=== PATIENT | female | born 1995 | race American Indian/Alaskan Native ===

== ENCOUNTER 2021-02-27 11:47 | Emergency (ER) | payer OTHER ==
[2021-02-27 12:02] VITALS: BP 135/91
--- NOTE | 2021-02-27 12:56 | Emergency Department Report ---
ED General Adult HPI - General Chief complaint: Allergic Reaction Stated complaint: ALLERGIC REACTION Time Seen by Provider: 02/27/21 12:23 Source: patient Mode of arrival: Ambulatory Limitations: No Limitations - History of Present Illness Initial comments: 25 yr old female presents to ED with complaints of swelling/rash to lips/face and vaginal itching. Patient states that she feels like her lips are tight and swollen despite the fact it does not look swollen and she also reports small bumps to her right chin and around lips which have been itchy. She states those symptoms started last saturday. She states she started using some new facial products about 2-3 weeks ago but that's the only new things that she has started. She denies any other new contacts including food or meds. She denies any tongue or throat swelling cough, wheezing or difficulty breathing Patient also complains of vaginal itching and swelling which she noticed a couple days ago. She denies any vaginal discharge she denies any vaginal pain. Her last MC was either december or january she is not exactly sure. She reports new sexual partner but protected sexual intercourse. MD Complaint: lip swelling/face rash, vaginal itching -: days(s) - Related Data Previous Rx's Medication Instructions Recorded Last Taken Type metroNIDAZOLE [Flagyl] 500 mg PO Q12HR #14 tab 02/27/21 Unknown Rx predniSONE [Deltasone] 40 mg PO QDAY #10 tab 02/27/21 Unknown Rx Allergies Allergy/AdvReac Type Severity Reaction Status Date / Time Penicillins Allergy Rash Verified 02/27/21 12:00 ED Review of Systems ROS: Stated complaint: ALLERGIC REACTION Other details as noted in HPI Comment: All other systems reviewed and negative Constitutional: denies: chills, fever Eyes: denies: eye pain, eye discharge, vision change ENT: other (lips swelling ). denies: ear pain, throat pain, dental pain, hearing loss, epistaxis, congestion Respiratory: denies: cough, shortness of breath, stridor, wheezing Cardiovascular: denies: chest pain, palpitations, syncope Endocrine: no symptoms reported Gastrointestinal: denies: abdominal pain, nausea, diarrhea Genitourinary: other (vaginal swelling, itching ). denies: urgency, dysuria, frequency, hematuria, discharge, abnormal menses, dyspareunia Musculoskeletal: denies: back pain, joint swelling, arthralgia Skin: rash. denies: lesions, change in color, change in hair/nails, pruritus Neurological: denies: headache, weakness, numbness, paresthesias, confusion, abnormal gait, vertigo Psychiatric: denies: anxiety, depression, auditory hallucinations, visual hallucinations, homicidal thoughts, suicidal thoughts Hematological/Lymphatic: denies: easy bleeding, easy bruising, swollen glands ED Past Medical Hx - Past Medical History Previous Medical History?: No - Surgical History Past Surgical History?: No - Medications Home Medications: Home Medications Medication Instructions Recorded Confirmed Last Taken Type metroNIDAZOLE [Flagyl] 500 mg PO Q12HR #14 tab 02/27/21 Unknown Rx predniSONE [Deltasone] 40 mg PO QDAY #10 tab 02/27/21 Unknown Rx ED Physical Exam - General Limitations: No Limitations General appearance: alert, in no apparent distress - Head Head exam: Present: atraumatic, normocephalic, normal inspection - Eye Eye exam: Present: normal appearance, PERRL, EOMI Pupils: Present: normal accommodation - ENT ENT exam: Present: normal exam, normal orophraynx, mucous membranes moist, other (no apparent swelling to lips; she has few flesh color, some hyperpigment tiny bumps to chin and corner of right mouth probably from folliculitis or acne) - Neck Neck exam: Present: normal inspection, full ROM - Respiratory Respiratory exam: Present: normal lung sounds bilaterally. Absent: respiratory distress - Cardiovascular Cardiovascular Exam: Present: regular rate, normal rhythm, normal heart sounds - GI/Abdominal GI/Abdominal exam: Present: soft. Absent: distended, tenderness, guarding, rebound - External exam: Present: normal external exam Speculum exam: Present: vaginal discharge (small amt of white vag d/c). Absent: vaginal bleeding, foreign body, tissue, laceration Bi-manual exam: Present: normal bi-manual exam. Absent: cervical motion tendernes, adnexal tenderness, adnexal mass, uterine enlargement, uterine tenderness - Neurological Exam Neurological exam: Present: alert, oriented X3, CN II-XII intact, normal gait - Psychiatric Psychiatric exam: Present: normal affect, normal mood - Skin Skin exam: Present: rash ED Course Vital Signs 02/27/21 12:01 Temperature 97.6 F Pulse Rate 70 Respiratory 18 Rate Blood Pressure 135/91 [Right] O2 Sat by Pulse 98 Oximetry ED Medical Decision Making - Medical Decision Making She does have a mild folliculitis/acne type rash to her chin and right side of her lips but no signs of any secondary bacterial infection and apparent hives. No apparent swelling noted to the lips, tongue or oropharynx or to the face in general but will give a couple days of low-dose steroids since she is having subjective symptoms of lip swelling. Also recommended proper facial care and probably changing her face mask frequently. She has no trismus or drooling on exam, no stridor and she is not in any respiratory distress. Her pelvic exam was unremarkable. Wet prep was positive for BV but otherwise negative. GC pending. UA negative and hCG negative. Suspected diagnosis and treatment plan discussed with patient. She expressed understanding of instructions and agree with plan. Patient was stable at time of discharge. Critical care attestation.: If time is entered above; I have spent that time in minutes in the direct care of this critically ill patient, excluding procedure time. ED Disposition Clinical Impression: Bacterial vaginosis, Rash of face Disposition: DC- TO HOME OR SELFCARE Is pt being admited?: No Does the pt Need Aspirin: No Condition: Stable Instructions: Rash, Adult, Bacterial Vaginosis, Bacterial Vaginosis (ED) Additional Instructions: Take the prednisone as prescribed. you can take benadryl to help with itching. Take the Flagyl as prescribed. Use a gentle facial cleanser/pore cleanser and moisturizer daily. Try not to change her facial products too frequently. Change the mask as often as possible. If the rash persists he can follow-up with a local student development specialist. Continue to practice safe sex to partner may need to be tested and treated as well. Return to the ER if your symptoms changes or worsens in any way. Prescriptions: predniSONE [Deltasone] 40 mg PO QDAY #10 tab metroNIDAZOLE [Flagyl] 500 mg PO Q12HR #14 tab Referrals: JAMAICA GARCIA MD [Staff Physician] - 3-5 Days Forms: STI Treatment and Prevention, Work/School Release Form(ED) Time of Disposition: 15:06
[2021-02-27 14:44] LABS: Bilirubin,Urine NEG (Negative); Blood,Urine NEG (Negative); Color,Urine Yellow (Yellow); Mucus,Urine FEW /HPF; Protein,Urine <15 mg/dL mg/dL (Negative); Urobilinogen,Urine < 2.0 mg/dL (<2.0)
[2021-02-27 15:14] LABS: HCG Qualitative,Urine Negative (Negative)
== END 2021-02-27 15:33 | disposition home or self-care (01) ==
LOC: ED 11:47
DX: N76.0 Acute vaginitis (principal); B96.89 Other specified bacterial agents as the cause of diseases classified elsewhere; R21 Rash and other nonspecific skin eruption; Z79.899 Other long term (current) drug therapy; Z88.0 Allergy status to penicillin
CPT/HCPCS: 81001; 81025; 87210; 87591